=== PATIENT | male | born 1955 ===

== ENCOUNTER → 2020-03-18 | Outpatient (CLI) | payer OTHER ==
[~2020-03-18] VITALS: Ht 180.3 cm; Wt 74.8 kg
[~2020-03-18] MED LIST: BACLOFEN20 MG PO; CALCIUM + VITA1 EACH PO; CHEST CONGESTI400 MG PO; CIALIS20 MG PO; DILT-XR120 MG PO; DULCOLAX STOOL100 M1 PO; HYDROXYZINE HCL10 M2 PO; LEVETIRACETAM1000 MG PO; LORATIDINE 10 M10 M1 PO; LYRICA150 MG PO; METAMUCIL0.4 GM PO; MULTIVITAMINS1 EAC7 PO; OMEPRAZOLE 20 M20 M1 PO; OXYBUTYNIN CHLO15 MG PO; PROSCAR 5MG TABL5 M1 PO; TRIAMTERENE/HCT1 CA1 PO; VOLTAREN GEL 1100 G1 TOP
[2020-03-18 12:29] VITALS: BP 126/75
--- NOTE | 2020-03-18 12:41 | NUR ---
Pain Clinic Assessment: 1. History of Osteoarthritis: Not Applicable History of Rheumatoid Arthritis: Not Applicable 2. Height: 5 ft. 11 in. 180.3 cm. Weight: 165.0 lb. oz. 74.844 kg. Patient's BMI: 23.0 3. Vital Signs: BP: 126/75 Pulse: 79 Resp: 14 Temp: 02 Sat: 100 ECG Mon: 4. Pain Intensity: 9 5. Fall Risk: Dizziness: N Needs help standing or walking: Y Fallen in the last 3 months: N Fall risk comments: 6. Patient on Blood Thinner: 7. History of Hypertension: Y 8. Opioid Therapy greater than 6 weeks: Y Opiate Contract Signed: 9. Risk Assessment Tool Provided: 10. Functional Assessment Tool: 11. Recreational Drug Use: Never Drug Type: Tobacco Use: Never Smoker Tobacco Type: Amount or Packs/day: How Many Years: Alcohol Use: No Frequency: Quant:
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
== END | disposition home or self-care (01) ==
LOC: PAIN 06:51
PROVIDERS: ATTEND Anesthesiology Pain Medicine
DX: M54.16 Radiculopathy, lumbar region (principal); G89.29 Other chronic pain; I10 Essential (primary) hypertension; N40.0 Benign prostatic hyperplasia without lower urinary tract symptoms; G47.30 Sleep apnea, unspecified; M19.90 Unspecified osteoarthritis, unspecified site; Z98.890 Other specified postprocedural states; Z79.899 Other long term (current) drug therapy

== ENCOUNTER → 2020-04-15 | Outpatient (CLI) | payer OTHER ==
[~2020-04-15] VITALS: Ht 180.3 cm; Wt 74.1 kg
[~2020-04-15] MED LIST changes: +ASA81BEC PO
[2020-04-15 13:09] VITALS: BP 124/83
--- NOTE | 2020-04-15 13:28 | NUR ---
Pain Clinic Assessment: 1. History of Osteoarthritis: Not Applicable History of Rheumatoid Arthritis: Not Applicable 2. Height: 5 ft. 11 in. 180.3 cm. Weight: 163.4 lb. oz. 74.118 kg. Patient's BMI: 22.8 3. Vital Signs: BP: 124/83 Pulse: 90 Resp: 14 Temp: 02 Sat: 98 ECG Mon: 4. Pain Intensity: 9 5. Fall Risk: Dizziness: N Needs help standing or walking: Y Fallen in the last 3 months: Y Fall risk comments: 6. Patient on Blood Thinner: None 7. History of Hypertension: Y 8. Opioid Therapy greater than 6 weeks: Y Opiate Contract Signed: 9. Risk Assessment Tool Provided: 10. Functional Assessment Tool: 11. Recreational Drug Use: Never Drug Type: Tobacco Use: Never Smoker Tobacco Type: Amount or Packs/day: How Many Years: Alcohol Use: No Frequency: Quant:
--- NOTE | 2020-04-29 08:57 | HPC ---
[facility] [address] [place] [address] PAIN MANAGEMENT CONSULTATION Name: SARATH CAMPOS Room #: REG CLARA MKamla.#: [id number] Admission: 04/15/20 Attend Phys: Josh Key MD Discharge: Date of : 55 Report #: [id number] THIS REPORT FOR: cc: MICHELLE - Katherine family physician/PCP MICHELLE - No family physician/PCP Josh Key MD ~ CC: Dr. Tanmay Rader at [facility] physician/PCP Josh Key DATE OF SERVICE: 04/15/2020 CHIEF COMPLAINT: Pain in the lower back and legs has improved after the last injection, "I would like to have another." HISTORY: The patient is a 65-year-old gentleman who has been having some increased pain and discomfort in his low back and down into his leg. He describes the pain as 9/10. He has had no complication from the last injection. He has elected today to return for another injection. He continues to have some numbness and tingling down into his low back and into the left leg and buttocks. It radiates all the way down to his left foot. He has been having pain and discomfort since 09/2019. Notes that prolonged standing, walking can be problematic. Use of medications and lying down has been beneficial. He has undergone physical therapy in the past. ALLERGIES: No known drug allergies. CURRENT MEDICATIONS: Aspirin 81 mg, baclofen 20 mg 4 times daily, calcium, diltiazem 120 mg, docusate 250 mg, finasteride 5 mg, hydrochlorothiazide/triamterene 37.5 mg, hydroxyzine 10 mg b.i.d., levetiracetam 1000 mg, loratadine 10 mg, multivitamins, oxybutynin 15 mg, pregabalin 150 mg, and Flomax 0.4 mg. PAIN CLINIC ASSESSMENT/PQRS: 1. The patient does have a history of osteoarthritic complaints. He is not being treated for rheumatoid arthritis. 2. Height 5 feet 11 inches, weight 163 pounds, BMI is 22.5. 3. Vital Signs: Blood pressure is 124/83, pulse 90, respiratory rate 14, room air saturation 98%. 4. Pain intensity 9/10 with tingling down into his feet. 5. Fall history: The patient has not fallen and required medical attention in the last 3 months. 6. Blood thinner. The patient is not on a blood thinning medication. 7. Hypertension. The patient is being treated for hypertension. 8. Opioids greater than 6 weeks. The patient receives medication [place] [address] PAIN MANAGEMENT CONSULTATION Name: SARATH CAMPOS Room #: REG CL Ginny#: [id number] Admission: 04/15/20 Attend Phys: Josh Key MD Discharge: Date of : 55 Report #: [id number] 9. Risk assessment tool, low for opioid use. 10. Functional assessment tool, . 11. Recreational drug use. The patient denies. 12. Tobacco: The patient has never smoked. 13. Alcohol. The patient denies use of alcoholic beverages. PHYSICAL EXAMINATION: GENERAL: The patient is a well-developed, well-nourished black male, appears his stated age. He is alert and oriented x 3. His affect is appropriate. Speech is fluent. HEENT: Normocephalic, atraumatic. Extraocular eye muscles intact. Sclerae nonicteric. Mucous membranes are moist. The patient is wearing a mask. NECK: Without adenopathy or JVD. HEART: Regular rate. LUNGS: Generally clear. ABDOMEN: Nontender. EXTREMITIES: Upper extremity muscle shows some spasticity associated with history of cerebrovascular accident. The patient has some numbness and tingling radiating down the lower portion of his back on the left side in the L5-S1 dermatomal distribution. IMPRESSION: 1. Lumbar radiculopathy. 2. Spasticity as a result of stroke/injury. RECOMMENDATIONS: We discussed treatment options with the patient. Risks and benefits of an epidural steroid injection were again discussed. They include but are not limited to infection, worsening of pain, no improvement in pain and the patient elects to proceed. PROCEDURE NOTE: The patient was taken to the procedure area. He was then assisted in getting on the examination table. His back was sterilely prepped with a Betadine solution. A 0.25% bupivacaine was infiltrated in the L5-S1 area. A 17-gauge Tuohy with loss of resistance technique was used to gain access to the epidural space. This area had been anesthetized with 0.25% bupivacaine using a 25-gauge needle. A total of 80 mg Depo-Medrol, 40 mg triamcinolone, and 2 mL of 0.25% bupivacaine was injected. The patient tolerated the procedure well. He remained in the pain clinic for an appropriate amount of time. He will follow up in the future as needed. We would like to thank you for letting us participate in his care. We hope he continues to improve. <ELECTRONICALLY SIGNED> By: Josh Key MD 04/29/20 0857 [id number] Josh Key MD /PMT
== END | disposition home or self-care (01) ==
LOC: PAIN 04-04 08:55
PROVIDERS: ATTEND Anesthesiology Pain Medicine
DX: M54.16 Radiculopathy, lumbar region (principal); G89.29 Other chronic pain; Z98.890 Other specified postprocedural states; Z79.899 Other long term (current) drug therapy